=== PATIENT | female | born 1960 | race Caucasian/White ===

== ENCOUNTER 2025-09-22 06:51 | Outpatient (RCR) | payer MEDICARE, BC, SELFPAY ==
--- NOTE | 2025-09-22 07:25 | HP.OTEVAL ---
Patient's Visit Information Visit Information Visit Information: AWA BROWN is a 65 year old F, referred to Occupational Therapy by ROSA ISELA Glaser, with a diagnosis of right 5th metacarpal fx. Date of Evaluation: 09/22/25 Occupational Therapist: Karrie Philippe, МАРИНА/Roberta, CHT Subjective Subjective: This 65 year old female was seen for OT eval with dx of non displaced fx of base of 5th metacarpal bone right hand- pt states she had a fall about a 5 weeks ago. pt states she was splinted for about 4 weeks. pt states she went back to the Dr on 09/15/25 and states she was released out of her splint. pt is right handed pt likes to do a lot of craft and uses her hand a lot- pt feels her ROM has returned and she reports no pain. pt reports she is IND with all ADLS ROM Wrist: right 45/40 left 55/35 MP: right LF 0/70 RF 0/70 left LF 0/95 RF 0/90 Strength Entry Level Automotive Technician: right 35# left 50# Lateral Pinch: right 10# left 10# Tripod Pinch: right 10# left 12# Sensation Sensation Comments: denies Quick DASH-Disab of Arm,Shoulder& Hand Quick DASH Score: 4.5450 Rehabilitation General Assessment: pt arrives about 5 weeks out from her fx. pt demo functional ROM and strength not limiting her with daily tasks at this time. Therapist gave pt HEP to improve her ROM and ed. on what to expect for her return of her strength. pt agrees she only need of HEP. pt d.c Rehabilitation Potential: Good Anticipated Interventions Anticipated Interventions: A/AAROM/PROM, Strengthening, Joint Protection/Energy Conservation, Ergonomic Education, Education re assistive Equipment, Education re Diagnosis and Home Program Visit Plan General Plan: pt was given HEP to improve her ROM and what to expect with return of her strength. pt demo understanding and will cont. HEP pt D/C from OT TEXT: Thank you for the opportunity to evaluate your patient. For Medicare and Medicare HMO plans, please review the plan of care and approve it. It will need to be FAXED BACK to us at [phone] for Medicare purposes. Please let me know if there are questions or concerns regarding this plan of care. Physician Signature: Date:
--- NOTE | 2025-09-22 07:26 | HP.OTDCSUM_ITS ---
Discharge Summary D/C Summary: It has been my pleasure to treat AWA BROWN under orders from ROSA ISELA Glaser, for the diagnosis of right 5th metacarpal fx for a total of 1 visit(s). Please see the following information for a summary of their discharge status. Objective Objective/Function: pt demo with slight decrease in ROM that is not limiting her- pt was given AROM to work on her end rage motion and ed. on what to expect for her return of strength. pt demo understanding and agree with d/c D/C Information d/c sentence: If there are questions or concerns regarding this patient's occupational therap y, please fell free to call me at [phone]. Thank you for the referral of this patient. Sincerely, Karrie Philippe, OTR/L, CHT
== END 2025-09-22 11:50 | disposition home or self-care (01) ==
LOC: OT 06:51
DX: S62.346D Nondisplaced fracture of base of fifth metacarpal bone, right hand, subsequent encounter for fracture with routine healing (principal)
CPT/HCPCS: 97166